=== PATIENT | male | born 1980 | race Caucasian/White ===

== ENCOUNTER 2022-06-10 20:14 | Emergency (ER) | payer OTHER, SELFPAY ==
[2022-06-10 20:28] VITALS: BP 155/98; PULSE 85; RESP 20; TEMP 36.6; O2SAT 98; BMI 30.4
--- NOTE | 2022-06-10 21:13 | DI.RAD.S_ITS ---
PROCEDURE: XR CHEST 1V INDICATIONS: chest pain TECHNIQUE: One view of the chest was acquired. COMPARISON: [facility], , CHEST 2 VIEW, 10/22/2016, 15:19. FINDINGS: Surgical changes and devices: None. Lungs and pleura: Lungs are clear. No pleural effusions or pneumothorax. Mediastinum: Mediastinal contours appear normal. Heart size is normal. Bones and chest wall: No suspicious bony lesions. Overlying soft tissues appear unremarkable. IMPRESSION: 1. No acute cardiopulmonary disease. Dictated by: Edilberto Edgar M.D. on 06/10/2022 at 22:47 Approved by: Edilberto Edgar M.D. on 06/10/2022 at 22:47
[2022-06-10 21:15] VITALS: PULSE 74; RESP 17
[2022-06-10 21:25] LABS: Add Manual Diff / Slide Review NO; Basophils Absolute Auto 100 /uL (0-100); Basophils Percent Auto 0.8 % (0-2); Eosinophils Absolute Auto 100 /uL (0-450); Hematocrit 45.2 % (41-53); Hemoglobin 15.7 g/dL (13.5-17.5); Lymphocytes Absolute Auto 2300 /uL (1100-4500); Lymphocytes Percent Auto 31.6 % (25-40); Mean Corpuscular HGB Conc 34.7 % (30-36); Mean Corpuscular Hemoglobin 29.9 PG (26-34); Mean Corpuscular Volume 86.2 fL (80-100); Monocytes Absolute Auto 700 /uL (0-900); Monocytes Percent Auto 9.3 % (3-14); Neutrophils Absolute Auto 4000 /uL (1500-7000); Neutrophils Percent Auto 56.3 % (50-75); Platelet Count 282 X10^3/uL (150-400); Prothrombin Time 11.4 SECONDS (10.1-12.7); Red Blood Cell Count 5.25 X10^6/uL (4.5-5.9); Red Cell Distribution Width 12.9 % (11.6-14.8); White Blood Cell Count 7.2 X10^3/uL (4.5-11.0)
[2022-06-10 21:27] LABS: PTT Partial Thromboplastin Tim 29 SECONDS (26-36)
[2022-06-10 21:30] VITALS: BP 133/88; PULSE 69; RESP 18
[2022-06-10 21:31] LABS: Alanine Aminotransferase 40 IU/L (<50); Albumin 4.8 g/dL (3.5-5.0); Albumin Globulin Ratio 1.4 (1.0-2.8); Alkaline Phosphatase 67 U/L (38-126); Aspartate Aminotransferase 29 IU/L (17-59); BUN Creatinine Ratio 24.7 (6-22); Bilirubin Total 0.5 mg/dL (0.2-1.3); Blood Urea Nitrogen 19 mg/dL (9-20); Calcium 9.3 mg/dL (8.4-10.2); Carbon Dioxide 26 mmol/L (22-32); Chloride 100 mmol/L (98-107); Creatine Kinase 105 U/L (55-170); Estimated Glomerular Filt Rate > 60 mL/min (>60); Globulin 3.4 g/dL (1.7-4.1); Glucose 104 mg/dL (70-100); HEMOLYSIS 27 (0-50); Lipase 89 U/L (23-300); Magnesium 1.9 mg/dL (1.6-2.3); Potassium 4.3 mmol/L (3.4-5.1); Sodium 137 mmol/L (137-145); Total Protein 8.2 g/dL (6.3-8.2)
[2022-06-10 21:42] LABS: Troponin I < 0.012 ng/mL (0.01-0.034)
[2022-06-10 21:45] LABS: CKMB % Relative Index 0.5 % (1.5-5.0); Creatine Kinase MB 0.49 ng/mL (<2.37)
[2022-06-10 22:00] VITALS: BP 138/88; PULSE 73; RESP 19
[2022-06-10] MEDS: ASPIRIN 81 MG CHEW TAB 324 MG PO (22:05)
[2022-06-10 22:33] LABS: D Dimer < 215 ng/ml (<500)
--- NOTE | 2022-06-10 23:54 | ED_ITS ---
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 Patient states for the past 3 weeks he has been having symptoms of left-sided chest pressure that radiates to his left neck and ear, sometimes his left arm and shoulder blade. He sometimes feels little dizzy hot when these episodes happen. He states sometimes he feels a little short of breath with them sometimes he does not. Has not been getting diaphoretic. He states it typically happens more nighttime but can happen during the daytime. States sometimes his blood pressure seems to be elevated when it occurs but not always. He notes sometimes he has a sensation of palpitations. Nothing seems to exacerbate or alleviate it. He is tried stretching, he is tied deep breathing. He states walking around or even running seems to help it. Patient does note that he sometimes gets numbness in both his hands and has had radiculopathy type symptoms in his arms and had radiculopathy in his leg in the past. Patient states used power lift for a long time. He did have remote use of steroids for a short period of time but nothing recently. He is not on any daily medications. He denies any prior surgeries. He states his dad had heart attack at age 54 but is dad also smoked 3 packs a day was a diabetic and a lift truck mechanic. He states siblings otherwise healthy. No other known cardiac disease in his family. No blood clot history. States he quit using THC recently. Does not use tobacco, denies alcohol, no illicit or IV drugs. Currently does not have a primary care physician. He also notes he is currently in between insurance. Related Data Previous Rx's Medication Instructions Recorded gabapentin 100 mg capsule 100 mg PO TID #90 caps 04/18/17 methylprednisolone 4 mg tablets in 4 mg PO DIRECTED ##1 04/18/17 a dose pack (Medrol (Tonny)) Allergies Allergy/AdvReac Type Severity Reaction Status Date / Time No Known Drug Allergies Allergy Verified 06/10/22 20:34 Review of Systems Review of Systems ROS Unobtainable: All systems reviewed & are unremarkable except as noted in HPI and below Patient History Social History Smoking Status: Never smoker Smoking Status: Never smoker alcohol intake frequency: 0-2 drinks per day Substance Use Type: does not use Exam Narrative Exam Narrative: GENERAL: Alert and oriented x three, male in mild distress. HEENT: Head normocephalic, atraumatic, EOMI, pupils reactive, face symmetric, moist mucous membranes NECK: Supple, full range of motion CARDIOVASCULAR: Regular rate and rhythm without murmurs, rubs or gallops. Equal pulses upper and lower extremities. No swelling bilateral lower extremities. RESPIRATORY: Breath sounds equal bilaterally, no wheezes rales or rhonchi. No tachypnea or accessory muscle use. Speaks in full sentences. ABDOMEN: Soft, nontender. Normoactive bowel sounds all 4 quadrants. No guarding or rebound, rigidity, no mass, no pulsatile bruit or mass. : No CVA tenderness EXTREMITIES: Normal range of motion, no clubbing or edema. Neurovascularly intact NEUROLOGICAL: Cranial nerves II through XII grossly intact. Moving all extremities SKIN: Warm, dry, no petechiae, no rashes or lesions. Initial Vital Signs Initial Vital Signs: Vital Signs Temperature 98 F 06/10/22 20:28 Pulse Rate 85 06/10/22 20:28 Respiratory Rate 20 06/10/22 20:28 Blood Pressure 155/98 H 06/10/22 20:28 Pulse Oximetry 98 06/10/22 20:28 Oxygen Delivery Method 06/10/22 20:28 Scores HEART Score Heart Score history: Moderately Suspicious Heart Score EKG: Non-Specific repolarization disturbance Heart Score Age: < 45 years old Heart Score risk factors: 1-2 risk factors Heart Score troponin: < or = to normal limit Heart Score Total: 3 PERC Score Age greater than or equal to 50 years: No Heart rate greater than or equal to 100 bpm: No Room Air O2 Sat less than 95%: No Unilateral leg swelling: No Recent trauma or surgery: No Hemoptysis: No Prior PE or DVT: No Hormone Use: No Total PERC Score: 0 Course Orders Ordered: ED Orders 06/10/22 21:13 XR chest 1V Stat EKG-12 Lead Stat 06/10/22 21:18 Complete Blood Count AUTO DIFF Stat Comprehensive Metabolic Panel Stat D Dimer Stat Lipase Stat Magnesium Stat Partial Thromboplastin Time Stat Prothrombin Time INR Stat Troponin & CK Cardiac Panel Stat 06/10/22 23:55 Trop I [Troponin I] Stat 06/11/22 00:00 COVID19 -Nasal RAPID/Pre-Proc Stat Discontinued Medications Aspirin (Aspirin 81 Mg Chew Tab) 324 mg PO NOW ONE Stop: 06/10/22 21:14 Last Admin: 06/10/22 22:05 Dose: 324 mg Documented By: BS Vital Signs Vital signs: Vital Signs - 8 hr 06/10/22 20:28 06/10/22 21:15 06/10/22 21:30 Temperature 98 F Pulse Rate 85 74 Respiratory Rate 20 17 Blood Pressure 155/98 H 133/88 Pulse Oximetry 98 Oxygen Delivery Method Room Air 06/10/22 21:30 06/10/22 22:00 06/10/22 22:00 Temperature Pulse Rate 69 73 Respiratory Rate 18 19 Blood Pressure 138/88 Pulse Oximetry Oxygen Delivery Method 06/11/22 01:00 Temperature Pulse Rate 69 Respiratory Rate 16 Blood Pressure 133/88 Pulse Oximetry 97 Oxygen Delivery Method Room Air MDM - Chest Pain Lab Data Result diagrams: 06/10/22 21:18 06/10/22 21:18 Labs: Lab Results 06/10/22 06/10/22 06/10/22 Range/Units 21:18 21:18 21:18 WBC 7.2 (4.5-11.0) X10^3/uL RBC 5.25 (4.5-5.9) X10^6/uL Hgb 15.7 (13.5-17.5) g/dL Hct 45.2 (41-53) % MCV 86.2 (80-100) fL MCH 29.9 (26-34) PG MCHC 34.7 (30-36) % RDW 12.9 (11.6-14.8) % Plt Count 282 (150-400) X10^3/uL Neut % (Auto) 56.3 (50-75) % Lymph % (Auto) 31.6 (25-40) % [place] % (Auto) 9.3 (3-14) % Eos % (Auto) 2.0 (2-4) % Baso % (Auto) 0.8 (0-2) % Neut # (Auto) 4000 (9291-1182) /uL Lymph # (Auto) 2300 (6692-7623) /uL [place] # (Auto) 700 (0-900) /uL Eos # (Auto) 100 (0-450) /uL Baso # (Auto) 100 (0-100) /uL PT 11.4 (10.1-12.7) SECONDS INR 1.0 (0.9-1.3) APTT 29 (26-36) SECONDS D-Dimer (<500) ng/ml Sodium 137 (137-145) mmol/L Potassium 4.3 (3.4-5.1) mmol/L Chloride 100 (98-107) mmol/L Carbon Dioxide 26 (22-32) mmol/L BUN 19 (9-20) mg/dL Creatinine 0.77 (0.66-1.25) mg/dL Estimated GFR > 60 (>60) mL/min BUN/Creatinine Ratio 24.7 H (6-22) Glucose 104 H (70-100) mg/dL Calcium 9.3 (8.4-10.2) mg/dL Magnesium 1.9 (1.6-2.3) mg/dL Total Bilirubin 0.5 (0.2-1.3) mg/dL AST 29 (17-59) IU/L ALT 40 (<50) IU/L Alkaline Phosphatase 67 (38-126) U/L Total Creatine Kinase 105 (55-170) U/L CK-MB (CK-2) 0.49 (<2.37) ng/mL CK-MB (CK-2) Rel Index 0.5 L (1.5-5.0) % Troponin I < 0.012 (0.01-0.034) ng/mL Total Protein 8.2 (6.3-8.2) g/dL Albumin 4.8 (3.5-5.0) g/dL Globulin 3.4 (1.7-4.1) g/dL Albumin/Globulin Ratio 1.4 (1.0-2.8) Lipase 89 (23-300) U/L SARS-CoV-2 (PCR) (Negative) 06/10/22 06/10/22 06/11/22 Range/Units 21:18 23:55 00:00 WBC (4.5-11.0) X10^3/uL RBC (4.5-5.9) X10^6/uL Hgb (13.5-17.5) g/dL Hct (41-53) % MCV (80-100) fL MCH (26-34) PG MCHC (30-36) % RDW (11.6-14.8) % Plt Count (150-400) X10^3/uL Neut % (Auto) (50-75) % Lymph % (Auto) (25-40) % [place] % (Auto) (3-14) % Eos % (Auto) (2-4) % Baso % (Auto) (0-2) % Neut # (Auto) (7364-2066) /uL Lymph # (Auto) (2098-8571) /uL [place] # (Auto) (0-900) /uL Eos # (Auto) (0-450) /uL Baso # (Auto) (0-100) /uL PT (10.1-12.7) SECONDS INR (0.9-1.3) APTT (26-36) SECONDS D-Dimer < 215 (<500) ng/ml Sodium (137-145) mmol/L Potassium (3.4-5.1) mmol/L Chloride (98-107) mmol/L Carbon Dioxide (22-32) mmol/L BUN (9-20) mg/dL Creatinine (0.66-1.25) mg/dL Estimated GFR (>60) mL/min BUN/Creatinine Ratio (6-22) Glucose (70-100) mg/dL Calcium (8.4-10.2) mg/dL Magnesium (1.6-2.3) mg/dL Total Bilirubin (0.2-1.3) mg/dL AST (17-59) IU/L ALT (<50) IU/L Alkaline Phosphatase (38-126) U/L Total Creatine Kinase (55-170) U/L CK-MB (CK-2) (<2.37) ng/mL CK-MB (CK-2) Rel Index (1.5-5.0) % Troponin I < 0.012 (0.01-0.034) ng/mL Total Protein (6.3-8.2) g/dL Albumin (3.5-5.0) g/dL Globulin (1.7-4.1) g/dL Albumin/Globulin Ratio (1.0-2.8) Lipase (23-300) U/L SARS-CoV-2 (PCR) Negative (Negative) Imaging Data Chest x-ray: Radiologist's Impression: No acute cardiopulmonary disease ECG Data Attestation: I personally reviewed and interpreted this ECG as follows: Interpretation: Sinus rhythm rate 82 [place] 164 QRS of 92 QTC 434. Q-wave no other acute ST changes appreciated. EKG 2. Shows sinus rhythm rate of 76 [place] 168 QRS of 98 QTC 436. Q-wave in lead 3, no other Q-waves in 2 or AVF, no acute ST changes otherwise appreciated no dynamic changes noted on EKGs MDM Narrative Medical decision making narrative: This is a 41-year-old male with complaint of left-sided chest pain which has been intermittent sometimes better when he exerts himself. Patient notes radiation to his jaw, neck and arm. It is intermittent. Patient's CBC, CMP, lipase and troponin are negative, troponin was repeated and is negative on 2nd her troponin. Patient's glucose is 104. D-dimer is negative, patient's COVID swab is Chest x-ray is negative for structural changes, pneumothorax, infection EKG shows sinus rhythm Q-wave in lead 3, no dynamic EKG changes are appreciated. Discussed with patient based on his history and family history I would recommend observation for stress testing. Patient notes that he does not have insurance this would be understandably quite expensive and very politely defers. We reviewed his findings today, I do have concern that he may have a cardiac source of his symptoms. Patient and I discussed starting an aspirin daily, he was given referral to Cardiology to set up stress testing. He states he can re knocked his insurance any day now. We discussed return precautions patient feels most comfortable with this plan. Discharge Plan Departure Patient Disposition: Home Clinical Impression: Chest pain Instructions: DI for Chest Pain Activity Restrictions/Additional Instructions: I do recommend that you have stress testing performed, as he elected to return home please follow-up with either primary care or Cardiology to establish and have a stress test performed. Referral is included below, call 1st thing in the morning to set up an appointment. I would recommend that you continue to take any 81 mg aspirin daily. Please return for new or worsening symptoms, persistent chest pain or pressure, shortness of breath, passing out, persistent vomiting, new weakness, numbness or loss of sensation or other new or concerning changes. Prescriptions: No Action methylprednisolone [Medrol (Tonny)] 4 MG tablets,dose pack 4 mg PO DIRECTED Qty: 1 0RF gabapentin 100 MG capsule 100 mg PO TID Qty: 90 0RF Referrals: Misty Driver MD [Physician] - Rickie Moreland MD [Physician] - Stand Alone Forms: Patient Portal/API
[2022-06-11 00:16] LABS: Troponin I < 0.012 ng/mL (0.01-0.034)
[2022-06-11 00:35] LABS: COVID19 -Nasal RAPID Negative (Negative)
[2022-06-11 01:00] VITALS: BP 133/88; PULSE 69; RESP 16; O2SAT 97
== END 2022-06-11 01:02 | disposition home or self-care (01) ==
PROVIDERS: Emergency Provider Emergency Medicine; Family Provider Family Medicine
DX: R07.9 Chest pain, unspecified (principal); R06.02 Shortness of breath; R42 Dizziness and giddiness; Z20.822 Contact with and (suspected) exposure to COVID-19
CPT/HCPCS: 36415; 71045; 80053; 82550; 82553; 83690; 83735; 84484; 85025; 85379; 85610; 85730; 87635; 93005; 93010; 99284; C9803

== ENCOUNTER 2023-02-11 02:21 | Emergency (ER) | payer OTHER, SELFPAY ==
[2023-02-11 02:35] VITALS: BP 137/77; PULSE 84; RESP 16; TEMP 36.8; O2SAT 98; BMI 35.2
[2023-02-11] MEDS: PROPARACAINE 0.5% OPHTH SOL 1 DROPS EYE-RIGHT (02:38)
[2023-02-11] MEDS: FLUORESCEIN 1 MG STRIP EYE-RIGHT (02:38)
--- NOTE | 2023-02-11 02:43 | ED_ITS ---
HPI - General Adult General Stated complaint: Something stuck in left eye Time Seen by Provider: 02/11/23 02:24 History of Present Illness HPI narrative: 42-year-old male was working with metal earlier and a small shaving got in his left eye. He was able to see it and attempted to remove the small metallic fragment earlier and went to sleep and woke up in his eye was a bit irritated he thought he may have seen some exudate. He is no vision change, does not wear contacts and states his tetanus is up-to-date. He is otherwise well and free of complaint Related Data Home Medications Medication Instructions Recorded Confirmed No Known Home Medications 06/21/22 06/21/22 Allergies Allergy/AdvReac Type Severity Reaction Status Date / Time No Known Drug Allergies Allergy Verified 06/21/22 15:10 Review of Systems Review of Systems Narrative: GENERAL: Denies chills, fatigue, malaise, fever, sweats. HEENT: See HPI RESPIRATORY: Denies dyspnea, cough, wheezing, hemoptysis, sputum. CARDIOVASCULAR: Denies chest pain, palpitations, orthopnea, edema, GASTROINTESTINAL: Denies nausea, vomiting, abdominal pain, diarrhea, constipation, melena. : Denies dysuria, frequency, incontinence, hematuria, urinary retention. MUSCULOSKELETAL: denies weakness, joint pain, or bony pain SKIN: Denies rash, skin lesions, or other NEUROLOGIC: Denies weakness, headache, numbness, change in speech, confusion, seizures, incoordination. PSYCHIATRIC: No concerning psychosocial issues. 12 point review of systems is negative except for those stated above Patient History Family History Father Diabetes mellitus History of heart disease Grandfather Stroke Social History Smoking Status: Former smoker (quit 2012) Tobacco: How many years used: 10 Smoking Status: Former smoker (quit 2012) alcohol intake frequency: 0-2 drinks per day Substance Use Type: does not use Exam Narrative Exam Narrative: GEN: AOx3 and in mild distress EYES: Pupils are equal, round, and reactive to light and accommodation. Extraoccular muscles are intact bilaterally. Minimal left eye scleral injection, viewed under Wood's lamp and followed by slit lamp after instillation of proparacaine. No obvious foreign body, upper lid everted. No dye uptake with fluorescein. Patient had complete resolution of symptoms with proparacaine. CHEST: Lungs are clear to auscultation bilaterally and free of wheezes, rales, or rhonchi. Heart rate is regular rhythm, there are no murmurs, clicks, rubs, or gallops. There is no chest wall tenderness. ABD: Abdomen is soft and nontender. There is no guarding or rebound. Bowel sounds are normal in all 4 quadrants. There is no mass or organomegaly. EXT: Full painless ROM of all extremities with no loss of sensation or strength. SKIN: Warm, pink, and dry. No erythema or rash Course Orders Ordered: Discontinued Medications Erythromycin (Erythromycin Ophth 1 Gm Oint) 1 applic EYE-LEFT NOW ONE Stop: 02/11/23 02:36 Fluorescein Sodium (Fluorescein 1 Mg Strip) 1 mg EYE-RIGHT NOW ONE Stop: 02/11/23 02:25 Proparacaine HCl (Proparacaine 0.5% Ophth [place]) 1 drops EYE-RIGHT NOW ONE Stop: 02/11/23 02:25 Medical Decision Making [facility] Narrative Medical decision making narrative: [42] year old patient presents with left eye irritation and corneal foreign body Multiple etiologies for patient's symptoms considered including, but not limited to: [Foreign body versus abrasion versus conjunctivitis versus other Prior Charts reviewed in our EMR Primary Historian: patient Patient's history and physical exam are very reassuring. His tetanus is up-to-date, he wears no contacts, foreign body was noted earlier and removed by patient. No evidence of ongoing foreign body, no fluorescein uptake, there is some scleral injection and patient reports matting. He is sent home with erythromycin ointment and encouraged to follow up with Ophthalmology Patient's symptoms improved over duration of stay with above-stated therapies. Findings and discharge diagnosis discussed with patient/family followed by verbalization of understanding Return precautions discussed with patient/family whom verbalize understanding of diagnosis and plan Discharge Plan Departure Patient Disposition: Home Clinical Impression: Conjunctivitis Instructions: DI for Corneal Abrasion Activity Restrictions/Additional Instructions: *You have been diagnosed with [left eye corneal irritation and possible early conjunctivitis. As we discussed there was no obvious foreign body] *What to do: *Please continue to take your regular medications as directed. [x ] Erythromycin ointment, please instill a 1 cm ribbon in your lower lid every 4 hours until better [x ] Proparacaine - 1 drop in your left eye every hour as needed for pain. I diluted it down to 0.05%, and you can use this for no more than 24 hours [ ] No new medications given *Please follow up with your primary care provider in 2-3 days, call for an appointment. Let them know you were seen in the Emergency Department and that we ask that you be seen in follow up. We will electronically transmit a record of today's note if your PCP is in our system *Return to Emergency Department if you should have any new, worsening or concerning symptoms, such as [fever greater than 101 F, shaking chills, worsening pain, persistent vomiting or other bothersome symptoms] Prescriptions: No Action No Known Home Medications Referrals: Maximo Peck MD [Physician] - Miscellaneous,MD Hiram [Primary Care Provider] - Stand Alone Forms: Patient Portal/API
[2023-02-11] MEDS: ERYTHROMYCIN OPHTH 1 GM OINT 1 APPLIC EYE-LEFT (02:44)
== END 2023-02-11 02:56 | disposition home or self-care (01) ==
PROVIDERS: Emergency Provider Emergency Medicine; Family Provider Family Medicine
DX: H10.9 Unspecified conjunctivitis (principal)
CPT/HCPCS: 99282

== ENCOUNTER 2023-03-14 21:47 | Emergency (ER) | payer OTHER, SELFPAY ==
[2023-03-14 21:51] VITALS: BP 171/103; PULSE 94; RESP 20; TEMP 36.1; O2SAT 97; BMI 36.6
--- NOTE | 2023-03-14 21:57 | DI.RAD.S_ITS ---
PROCEDURE: XR CHEST 1V INDICATIONS: chest pain TECHNIQUE: One view of the chest was acquired. COMPARISON: [facility], , XR CHEST 1V, 06/10/2022, 21:26. [facility], , CHEST 2 VIEW, 10/22/2016, 15:19. FINDINGS: Surgical changes and devices: None. Lungs and pleura: Lungs are clear. No pleural effusions or pneumothorax. Mediastinum: Mediastinal contours appear normal. Heart size is normal. Bones and chest wall: No suspicious bony lesions. Overlying soft tissues appear unremarkable. IMPRESSION: No acute cardiopulmonary abnormality. Dictated by: Joseph Moe M.D. on 03/14/2023 at 23:52 Approved by: Joseph Moe M.D. on 03/14/2023 at 23:53
[2023-03-14 22:13] LABS: INR 0.9 (0.9-1.3); Prothrombin Time 10.6 SECONDS (10.1-12.7)
[2023-03-14 22:16] LABS: Add Manual Diff / Slide Review NO; Alanine Aminotransferase 48 IU/L (<50); Albumin 4.7 g/dL (3.5-5.0); Albumin Globulin Ratio 1.3 (1.0-2.8); Alkaline Phosphatase 60 U/L (38-126); Aspartate Aminotransferase 34 IU/L (17-59); BUN Creatinine Ratio 20.2 (6-22); Basophils Absolute Auto 100 /uL (0-100); Basophils Percent Auto 1.1 % (0-2); Bilirubin Total 0.4 mg/dL (0.2-1.3); Blood Urea Nitrogen 17 mg/dL (9-20); Calcium 9.4 mg/dL (8.4-10.2); Carbon Dioxide 24 mmol/L (22-32); Chloride 95 mmol/L (98-107); Creatine Kinase 168 U/L (55-170); Eosinophils Absolute Auto 100 /uL (0-450); Eosinophils Percent Auto 1.6 % (2-4); Estimated Glomerular Filt Rate > 60 mL/min (>60); Globulin 3.6 g/dL (1.7-4.1); Glucose 109 mg/dL (70-100); HEMOLYSIS 39 (0-50); Hematocrit 43.5 % (41-53); Lipase 67 U/L (23-300); Lymphocytes Absolute Auto 2200 /uL (1100-4500); Lymphocytes Percent Auto 30.9 % (25-40); Mean Corpuscular HGB Conc 34.6 % (30-36); Mean Corpuscular Hemoglobin 30.2 PG (26-34); Mean Corpuscular Volume 87.4 fL (80-100); Monocytes Absolute Auto 700 /uL (0-900); Monocytes Percent Auto 9.5 % (3-14); Neutrophils Absolute Auto 4000 /uL (1500-7000); Neutrophils Percent Auto 56.9 % (50-75); PTT Partial Thromboplastin Tim 26 SECONDS (26-36); Platelet Count 274 X10^3/uL (150-400); Potassium 4.2 mmol/L (3.4-5.1); Red Blood Cell Count 4.97 X10^6/uL (4.5-5.9); Red Cell Distribution Width 13.2 % (11.6-14.8); Sodium 132 mmol/L (137-145); Total Protein 8.3 g/dL (6.3-8.2)
[2023-03-14 22:28] LABS: Troponin I < 0.012 ng/mL (0.01-0.034)
--- NOTE | 2023-03-14 22:30 | PC.NURSE ---
pt was drinking today when he became dizzy and had some c/p denies any dizziness at this time ambulatory with gait steady
[2023-03-14 22:31] VITALS: BP 163/97
[2023-03-14 22:32] VITALS: PULSE 92; RESP 22; O2SAT 98
[2023-03-14 23:00] VITALS: PULSE 77; RESP 17; O2SAT 95
[2023-03-14 23:30] VITALS: PULSE 82; RESP 16; O2SAT 96
[2023-03-15] VITALS: PULSE 75; RESP 13; O2SAT 98
[2023-03-15 00:30] VITALS: PULSE 82; RESP 15; O2SAT 97
== END 2023-03-15 00:42 | disposition left against medical advice (07) ==
PROVIDERS: Emergency Provider Emergency Medicine; Family Provider Family Medicine
DX: R07.9 Chest pain, unspecified (principal)
CPT/HCPCS: 36415; 71045; 80053; 82550; 83690; 83735; 84484; 85025; 85610; 85730; 93005; 93010; 99283

== ENCOUNTER 2023-03-20 00:08 | Emergency (ER) | payer OTHER, SELFPAY ==
[2023-03-20] VITALS (10 sets, daily range): BP systolic 119–154; BP diastolic 77–101; PULSE 69–94; RESP 12–18; TEMP 36.6; O2SAT 95–99; BMI 35.9
--- NOTE | 2023-03-20 00:15 | ED_ITS ---
HPI - Chest Pain General Chief Complaint: Chest Pain Stated Complaint: chest pain/trouble breathing x30 min Time Seen by Provider: 03/20/23 00:15 Source: patient Mode of arrival: Ambulatory Limitations: no limitations History of Present Illness HPI narrative: 42-year-old male with history of degenerative joint disease thoracic back known lumbar stenosis who presents with complaint of chest pain. Patient states he is had episodes on and off most recently this evening about 45 minutes prior to arrival. Patient states substernal little bit to the left radiates towards his back. He states he gets chronic paresthesias in his upper extremities intermittently has some in his left arm today. Patient states he does feel little short of breath no cold cough or congestion. No fevers or chills. Denies nausea or vomiting. No diaphoresis. No issues with diarrhea constipation, no dysuria urgency frequency or urinary symptoms. No swelling in her extremities. Patient does note that he has been seen in the past for chest pain but never had further workup. He has had rhabdo I lysis x2 from excessive working out also related to his chest but states he no longer works out regularly. He states no daily prescriptions, does not follow regularly with a physician. No prior surgeries. No known drug allergies. No tobacco, had several alcoholic drinks this evening, no recreational or IV drugs. Does note his dad from heart attack around age 54, has 2 siblings he states that they do not have any cardiac issues. No current primary care physician. Related Data Home Medications Medication Instructions Recorded Confirmed No Known Home Medications 06/21/22 06/21/22 Allergies Allergy/AdvReac Type Severity Reaction Status Date / Time No Known Drug Allergies Allergy Verified 06/21/22 15:10 Review of Systems Review of Systems ROS Unobtainable: All systems reviewed & are unremarkable except as noted in HPI and below Patient History Family History Father Diabetes mellitus History of heart disease Grandfather Stroke Social History Smoking Status: Former smoker Tobacco: How many years used: 10 Smoking Status: Former smoker alcohol intake frequency: 0-2 drinks per day Alcohol type: beer Substance Use Type: does not use Exam Narrative Exam Narrative: GENERAL: Alert and oriented x three, mild distress. HEENT: Head normocephalic, atraumatic, EOMI, pupils reactive, face symmetric, moist mucous membranes NECK: Supple, full range of motion CARDIOVASCULAR: Regular rate and rhythm without murmurs, rubs or gallops. No reproducible chest pain. No JVD. RESPIRATORY: Breath sounds equal bilaterally, no wheezes rales or rhonchi. No tachypnea or accessory muscle use. ABDOMEN: Soft, nontender. Normoactive bowel sounds all 4 quadrants. No guarding or rebound, rigidity, no mass : No CVA tenderness EXTREMITIES: Normal range of motion, no clubbing or edema. Neurovascularly intact. 2+ pulses bilateral upper extremities. NEUROLOGICAL: Cranial nerves II through XII grossly intact. Moving all extremities SKIN: Warm, dry, no petechiae, no rashes or lesions. Initial Vital Signs Initial Vital Signs: Vital Signs Pulse Rate 94 H 03/20/23 00:13 Pulse Oximetry 98 03/20/23 00:13 Scores HEART Score Heart Score history: Moderately Suspicious Heart Score EKG: Normal Heart Score Age: < 45 years old Heart Score risk factors: 1-2 risk factors Heart Score troponin: < or = to normal limit Heart Score Total: 2 Course Orders Ordered: ED Orders 03/20/23 EKG-12 Lead Stat 03/20/23 00:26 Complete Blood Count AUTO DIFF Stat Comprehensive Metabolic Panel Stat D Dimer Stat Lipase Stat NT-proBNP (BNP-Adult 18+) Stat PTT Partial Thromboplastin Joey Stat Prothrombin Time INR Stat Troponin & CK Cardiac Panel Stat 03/20/23 00:30 XR chest 1V Stat EKG-12 Lead Stat 03/20/23 02:45 Trop I [Troponin I] Stat Discontinued Medications Aspirin (Aspirin 81 Mg Chew Tab) 324 mg PO NOW ONE Stop: 03/20/23 00:30 Last Admin: 03/20/23 00:35 Dose: 324 mg Documented By: MARK Vital Signs Vital signs: Vital Signs - 8 hr 03/20/23 00:13 03/20/23 00:14 03/20/23 00:14 Temperature Pulse Rate 94 H 91 H Respiratory Rate Blood Pressure 154/92 H Pulse Oximetry 98 98 Oxygen Delivery Method 03/20/23 00:15 03/20/23 00:28 03/20/23 00:28 Temperature 98 F Pulse Rate 87 84 Respiratory Rate 18 16 Blood Pressure 154/92 H 144/101 H Pulse Oximetry 98 99 Oxygen Delivery Method Room Air 03/20/23 00:30 03/20/23 00:30 03/20/23 01:00 Temperature Pulse Rate 81 82 Respiratory Rate 12 16 Blood Pressure 135/91 H Pulse Oximetry 98 96 Oxygen Delivery Method Room Air 03/20/23 01:00 03/20/23 01:30 03/20/23 01:30 Temperature Pulse Rate 71 Respiratory Rate 16 Blood Pressure 131/91 H 136/87 Pulse Oximetry 97 Oxygen Delivery Method 03/20/23 02:00 03/20/23 02:00 03/20/23 02:30 Temperature Pulse Rate 69 70 Respiratory Rate 15 15 Blood Pressure 138/97 H Pulse Oximetry 97 98 Oxygen Delivery Method 03/20/23 02:30 03/20/23 03:00 03/20/23 03:00 Temperature Pulse Rate 71 Respiratory Rate 15 Blood Pressure 130/87 119/77 Pulse Oximetry 95 Oxygen Delivery Method Room Air MDM - Chest Pain Lab Data 03/20/23 00:26 03/20/23 00:26 Labs: Lab Results 03/20/23 03/20/23 Range/Units 00:26 02:45 WBC 5.9 (4.5-11.0) X10^3/uL RBC 5.05 (4.5-5.9) X10^6/uL Hgb 15.0 (13.5-17.5) g/dL Hct 44.0 (41-53) % MCV 87.0 (80-100) fL MCH 29.8 (26-34) PG MCHC 34.2 (30-36) % RDW 13.3 (11.6-14.8) % Plt Count 243 (150-400) X10^3/uL Neut % (Auto) 49.9 L (50-75) % Lymph % (Auto) 35.4 (25-40) % [place] % (Auto) 11.2 (3-14) % Eos % (Auto) 2.4 (2-4) % Baso % (Auto) 1.1 (0-2) % Neut # (Auto) 2900 (8744-0651) /uL Lymph # (Auto) 2100 (7423-2929) /uL [place] # (Auto) 700 (0-900) /uL Eos # (Auto) 100 (0-450) /uL Baso # (Auto) 100 (0-100) /uL PT 11.9 (10.1-12.7) SECONDS INR 1.0 (0.9-1.3) APTT 28 (26-36) SECONDS D-Dimer < 215 (<500) ng/ml Sodium 133 L (137-145) mmol/L Potassium 4.0 (3.4-5.1) mmol/L Chloride 97 L (98-107) mmol/L Carbon Dioxide 26 (22-32) mmol/L BUN 9 (9-20) mg/dL Creatinine 0.77 (0.66-1.25) mg/dL Estimated GFR > 60 (>60) mL/min BUN/Creatinine Ratio 11.7 (6-22) Glucose 110 H (70-100) mg/dL Calcium 9.3 (8.4-10.2) mg/dL Total Bilirubin 0.6 (0.2-1.3) mg/dL AST 31 (17-59) IU/L ALT 42 (<50) IU/L Alkaline Phosphatase 68 (38-126) U/L Total Creatine Kinase 213 H (55-170) U/L Troponin I < 0.012 < 0.012 (0.01-0.034) ng/mL NT-Pro-B Natriuret Pep 23 (<125) pg/mL Total Protein 7.7 (6.3-8.2) g/dL Albumin 4.4 (3.5-5.0) g/dL Globulin 3.3 (1.7-4.1) g/dL Albumin/Globulin Ratio 1.3 (1.0-2.8) Lipase 69 (23-300) U/L Imaging Data Chest x-ray: Radiologist's Impression: [address] [address] XRay Report Signed Patient: Dedrick Figueroa MR#: [id number] : 1980 Acct:[id number] Age/Sex: 42 / M Date of Service: 03/20/23 Loc: ED Accession Number: [id number] Procedure: XR chest 1V Ordering Provider: Elba Rubi D.O. PROCEDURE: XR CHEST 1V INDICATIONS: Chest tightness, SOB. TECHNIQUE: One view of the chest was acquired. COMPARISON: [facility], , XR CHEST 1V, 03/14/2023, 22:14. [facility], CR, XR CHEST 1V, 06/10/2022, 21:26. FINDINGS: Surgical changes and devices: None. Lungs and pleura: Lungs are clear. No pleural effusions or pneumothorax. Mediastinum: Mediastinal contours appear normal. Heart size is normal. Bones and chest wall: No suspicious bony lesions. Overlying soft tissues appear unremarkable. IMPRESSION: Portable chest within normal limits for age. Dictated by: Alex Woods M.D. on 03/20/2023 at 1:59 Approved by: Alex Woods M.D. on 03/20/2023 at 2:00 ECG Data Attestation: I personally reviewed and interpreted this ECG as follows: Prior ECG tracings: available for review Interpretation: Rate 85 IA 160, QRS [address] elevation, patient appears to have possible limb lead reversal will repeat 2nd. Does appear different from prior on 03/14/2020. EKG (repeat): Sinus rhythm rate of 79 IA 178 QRS of [address] No acute [address] changes compared to prior from 03/14/2023. Does appear to have limb lead reversal with initial EKG. EKG 3. No acute changes from 2nd to 3rd, patient has no new ST elevation or depression no dynamic changes noted. MDM Narrative Medical decision making narrative: 42-year-old male presents with complaint of chest pain substernal slightly to the left, shortness of breath, patient's initial EKG had limb lead reversal, repeated and appears similar to priors. Patient's chest x-ray shows no acute change. Patient labs shows appropriate hemoglobin, INR is negative D-dimer is negative at 215, sodium is 133 appropriate potassium chloride 97 glucose 110 with normal renal function electrolytes, total CK was 213 initial troponins negative with a BNP of 23. Troponin was repeated and is negative. Patient does have risk factors father had cardiac event in his 50s which he . Discussed with patient would recommend stress test with observation. We do not have this over the weekend. Patient does not with to be transferred. Patient asymptomatic at this time. He has set up follow up appointment wit primary care to set this up already. Patient does note he seems to happen more when he has been drinking but not always. Discharge Plan Departure Patient Disposition: Home Clinical Impression: Chest pain Instructions: DI for Chest Pain Activity Restrictions/Additional Instructions: Please follow-up for recheck. Your workup today was overall reassuring but I would recommend follow-up and stress testing in the future based on your family history. Please return for new or worsening symptoms, fevers, new chest pain, shortness of breath, lightheadedness or passing out, new swelling in your extremities or other new or concerning changes. Prescriptions: No Action No Known Home Medications Referrals: Miscellaneous,Doctor, MD [Primary Care Provider] - Stand Alone Forms: Patient Portal/API
--- NOTE | 2023-03-20 00:30 | DI.RAD.S_ITS ---
PROCEDURE: XR CHEST 1V INDICATIONS: Chest tightness, SOB. TECHNIQUE: One view of the chest was acquired. COMPARISON: [facility], CR, XR CHEST 1V, 03/14/2023, 22:14. [facility], CR, XR CHEST 1V, 06/10/2022, 21:26. FINDINGS: Surgical changes and devices: None. Lungs and pleura: Lungs are clear. No pleural effusions or pneumothorax. Mediastinum: Mediastinal contours appear normal. Heart size is normal. Bones and chest wall: No suspicious bony lesions. Overlying soft tissues appear unremarkable. IMPRESSION: Portable chest within normal limits for age. Dictated by: Alex Woods M.D. on 03/20/2023 at 1:59 Approved by: Alex Woods M.D. on 03/20/2023 at 2:00
[2023-03-20] MEDS: ASPIRIN 81 MG CHEW TAB 324 MG PO (00:35)
[2023-03-20 00:40] LABS: Add Manual Diff / Slide Review NO; Basophils Absolute Auto 100 /uL (0-100); Basophils Percent Auto 1.1 % (0-2); Eosinophils Absolute Auto 100 /uL (0-450); Eosinophils Percent Auto 2.4 % (2-4); Lymphocytes Absolute Auto 2100 /uL (1100-4500); Lymphocytes Percent Auto 35.4 % (25-40); Mean Corpuscular HGB Conc 34.2 % (30-36); Mean Corpuscular Hemoglobin 29.8 PG (26-34); Monocytes Absolute Auto 700 /uL (0-900); Monocytes Percent Auto 11.2 % (3-14); Neutrophils Absolute Auto 2900 /uL (1500-7000); Neutrophils Percent Auto 49.9 % (50-75); Platelet Count 243 X10^3/uL (150-400); Red Blood Cell Count 5.05 X10^6/uL (4.5-5.9); Red Cell Distribution Width 13.3 % (11.6-14.8); White Blood Cell Count 5.9 X10^3/uL (4.5-11.0)
[2023-03-20 00:43] LABS: Prothrombin Time 11.9 SECONDS (10.1-12.7)
[2023-03-20 00:44] LABS: D Dimer < 215 ng/ml (<500)
[2023-03-20 00:45] LABS: PTT Partial Thromboplastin Tim 28 SECONDS (26-36)
[2023-03-20 00:47] LABS: Alanine Aminotransferase 42 IU/L (<50); Albumin 4.4 g/dL (3.5-5.0); Albumin Globulin Ratio 1.3 (1.0-2.8); Alkaline Phosphatase 68 U/L (38-126); Aspartate Aminotransferase 31 IU/L (17-59); BUN Creatinine Ratio 11.7 (6-22); Bilirubin Total 0.6 mg/dL (0.2-1.3); Blood Urea Nitrogen 9 mg/dL (9-20); Calcium 9.3 mg/dL (8.4-10.2); Carbon Dioxide 26 mmol/L (22-32); Chloride 97 mmol/L (98-107); Creatine Kinase 213 U/L (55-170); Estimated Glomerular Filt Rate > 60 mL/min (>60); Globulin 3.3 g/dL (1.7-4.1); Glucose 110 mg/dL (70-100); HEMOLYSIS 17 (0-50); Lipase 69 U/L (23-300); Sodium 133 mmol/L (137-145); Total Protein 7.7 g/dL (6.3-8.2)
[2023-03-20 00:59] LABS: NT-proBNP (BNP-Adult 18+) 23 pg/mL (<125); Troponin I < 0.012 ng/mL (0.01-0.034)
[2023-03-20 03:17] LABS: Troponin I < 0.012 ng/mL (0.01-0.034)
== END 2023-03-20 03:45 | disposition home or self-care (01) ==
PROVIDERS: Emergency Provider Emergency Medicine; Family Provider Family Medicine
DX: R07.9 Chest pain, unspecified (principal); R06.02 Shortness of breath
CPT/HCPCS: 36415; 71045; 80053; 82550; 83690; 83880; 84484; 85025; 85379; 85610; 85730; 93005; 93010; 99284